=== PATIENT | female | born 1960 | race Caucasian/White ===

== ENCOUNTER → 2020-07-09 11:56 | Outpatient (CLI) | payer OTHER, SELFPAY ==
--- NOTE | 2020-07-09 12:01 | RAD_ITS ---
STUDY: X-RAY - LEFT ANKLE REASON FOR EXAM: Female, 60 years old. left ankle pain, fell 6 ft from ladder this morning TECHNIQUE: 3 view(s) of the ankle. COMPARISON: None. FINDINGS: Normal visualized distal tibia and fibula. Normal medial and lateral malleoli. Normal tibiotalar articulation and ankle mortise. Normal visualized talus and calcaneus. The visualized subtalar, talonavicular, calcaneocuboid and tarsal articulations are normal. The soft tissue structures are unremarkable. RAD/Ankle min 3 Views IMPRESSION: Normal x-ray examination of the ankle. Electronically Signed: John Spivey MD at 13:15 EDT Tel , Service support ,
== END ==
PROVIDERS: PCP Family Medicine; Referring Provider Family Medicine; Visit Provider Family Medicine
DX: M25.572 Pain in left ankle and joints of left foot (principal)
CPT/HCPCS: 73610

== ENCOUNTER → 2022-06-27 | Outpatient (CLI) | payer OTHER, SELFPAY ==
--- NOTE | 2022-06-27 11:50 | RAD_ITS ---
STUDY: X-RAY CHEST REASON FOR EXAM: Female, 62 years old. Cough. TECHNIQUE: Frontal and lateral views of the chest. COMPARISON: None. FINDINGS: Hyperexpansion. There is no demonstrated pleural abnormality. Normal size heart. Normal mediastinum and hal. Normal visualized pulmonary arteries. Normal visualized aortic arch and descending thoracic aorta. Normal visualized thoracic spine. Normal visualized ribs, clavicles, and shoulders. There is no demonstrated abnormality of the visualized soft tissue structures of the upper abdomen. RAD/Chest PA and Lateral IMPRESSION: Hyperexpansion. No acute or active cardiopulmonary disease. Electronically Signed: Jerardo Prince, at 12:13 EDT ,
== END | disposition home or self-care (01) ==
LOC: MTRAD 11:44
PROVIDERS: PCP Family Medicine; Referring Provider Family Medicine; Visit Provider Family Medicine
DX: R05.3 Chronic cough (principal)
CPT/HCPCS: 71046